=== PATIENT | female | born 1960 | race Caucasian/White ===

== ENCOUNTER → 2017-04-28 | Outpatient (CLI) | payer OTHER | LOC: MAMMO 11:37 | DX: Z12.31 Encounter for screening mammogram for malignant neoplasm of breast (principal) | CPT/HCPCS: G0202 ==

== ENCOUNTER → 2019-03-03 | Outpatient (CLI) | payer OTHER | LOC: MAMMO 09:03 | DX: Z12.13 Encounter for screening for malignant neoplasm of small intestine (principal) ==

== ENCOUNTER 2021-06-10 08:55 | Outpatient (RCR) | payer OTHER | END 2021-07-10 17:00 | disposition home or self-care (01) | LOC: PT 08:55 | DX: M51.36 Other intervertebral disc degeneration, lumbar region (principal); M25.511 Pain in right shoulder; M25.512 Pain in left shoulder ==

== ENCOUNTER → 2021-06-26 | Outpatient (CLI) | payer OTHER | LOC: MAMMO 10:45 | DX: Z12.31 Encounter for screening mammogram for malignant neoplasm of breast (principal) ==

== ENCOUNTER 2022-01-07 20:03 | Emergency (ER) | payer OTHER ==
[~2022-01-07] VITALS: Ht 170.2 cm; Wt 86.4 kg
[2022-01-07] MEDS ORDERED: CYCLOBENZAPRINE10 M1 PO (21:34)
[2022-01-07] MEDS ORDERED: VALIUM 5MG T5 MG/TAB PO (23:06)
[2022-01-07 23:15] VITALS: BP 142/93
== END 2022-01-07 23:15 | disposition home or self-care (01) ==
LOC: ED 20:03
DX: M62.838 Other muscle spasm (principal); Z79.899 Other long term (current) drug therapy
CPT/HCPCS: J1885; J3360

== ENCOUNTER → 2022-07-02 | Outpatient (CLI) | payer OTHER ==
[~2022-07-02] MED LIST: CYCLOBENZAPRINE10 M1 PO; VALIUM 5MG T5 MG/TAB PO
== END ==
LOC: MAMMO 13:25
DX: Z13.820 Encounter for screening for osteoporosis (principal); Z12.31 Encounter for screening mammogram for malignant neoplasm of breast; Z78.0 Asymptomatic menopausal state

== ENCOUNTER 2022-12-18 15:04 | Emergency (ER) | payer OTHER ==
[2022-12-18] MEDS ORDERED: WELLBUTRIN 75MG75 MG PO (15:36)
[2022-12-18] MEDS ORDERED: MELOXICAM15 MG PO (15:36)
[2022-12-18 15:55] LABS: BASO # 0.02 K/mm3 (0.02-0.10); EOS # 0.09 K/mm3 (0.04-0.40); HEMATOCRIT 35.9 % (37.0-47.0); LYMPH# 1.13 K/mm3 (1.50-4.00); MEAN CELL VOLUME 89 fl (78-100); MEAN CORPUSCULAR HEMOGLOBIN 30 pg (27-31); MEAN CORPUSCULAR HGB CONC 33 g/dL (33-37); MEAN PLATELET VOLUME 9.3 fl (7.4-10.4); MONO # 0.49 K/mm3 (0.20-0.80); NEU # 7.64 K/mm3 (1.40-6.50); PLATELET COUNT 272 K/mm3 (130-400); RED BLOOD COUNT 4.05 M/mm3 (4.10-5.30); RED CELL DISTRIBUTION WIDTH 12.3 % (11.5-14.5); WHITE BLOOD COUNT 9.4 K/mm3 (4.8-10.8)
[2022-12-18 16:03] LABS: ALBUMIN 4.2 g/dL (3.5-5.0); POTASSIUM 4.2 mmol/L (3.5-5.1); SODIUM 135 mmol/L (136-145)
[2022-12-18 16:04] LABS: CALCIUM 9.8 mg/dL (8.3-10.5)
[2022-12-18 16:05] LABS: GLUCOSE 107 mg/dL (65-105)
[2022-12-18 16:06] LABS: CARBON DIOXIDE 25 mmol/L (22-29)
[2022-12-18 16:07] LABS: TOTAL BILIRUBIN 0.7 mg/dL (0.2-1.2)
[2022-12-18 16:09] LABS: PH-URINE 7.5 (5.0 - 8.0); URINE APPEARANCE CLEAR; URINE COLOR YELLOW; URINE PROTEIN(semi-quant) TRACE (NEGATIVE)
[2022-12-18 16:10] LABS: URINE BILIRUBIN NEGATIVE (NEGATIVE); URINE BLOOD NEGATIVE (NEGATIVE); URINE GLUCOSE NEGATIVE (NEGATIVE); URINE KETONE TRACE (NEGATIVE); URINE LEUKOCYTE ESTERASE NEGATIVE (NEGATIVE); URINE NITRATE NEGATIVE (NEGATIVE); URINE UROBILINOGEN NORMAL (NORMAL); URINE WBC 0-1 /hpf (0-3)
[2022-12-18 16:11] LABS: AST-SGOT 23 U/L (5-34)
[2022-12-18 16:12] LABS: ALT/SGPT 16 U/L (0-55)
[2022-12-18 16:25] LABS: TROPONIN-I < 0.030 ng/mL (<0.030)
[2022-12-18] MEDS ORDERED: ZOFRAN ODT4 MG PO (16:32)
[2022-12-18 16:47] VITALS: BP 141/81
== END 2022-12-18 16:47 | disposition home or self-care (01) ==
LOC: ED 15:04
PROVIDERS: Family Medicine
DX: R11.2 Nausea with vomiting, unspecified (principal); R19.7 Diarrhea, unspecified; E66.9 Obesity, unspecified